=== PATIENT | female | born 1980 | race Caucasian/White ===

== ENCOUNTER 2016-11-18 18:32 | Emergency (ER) | payer MEDICAID ==
[2016-11-18] MEDS ORDERED: MORPHINE SULFATE INJ 10 MG/ML VIAL ONE (18:41)
[2016-11-18] MEDS ORDERED: MORPHINE SULFATE INJ 10 MG/ML VIAL IV ONE (18:42)
[2016-11-18 19:05] VITALS: TEMP 98.7; O2SAT 97
--- NOTE | 2016-11-18 19:09 | ED.PDOC ---
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 IS YELLING, DIFFICULT TO EXAMINE. EDC 12/21/16. 35 / BY DATES. - History of Present Illness Timing/Duration: 1 hour Severity: moderate, severe Improving Factors: nothing Worsening Factors: nothing Associated Symptoms: denies symptoms, other - DENIES ROM Allergies/Adverse Reactions: Allergies NO KNOWN ALLERGY Allergy (Verified 11/18/16 18:42) Review of Systems - Review of Systems Constitutional: Denies: chills, fever EENTM: States: no symptoms reported Respiratory: States: no symptoms reported Cardiology: States: no symptoms reported Gastrointestinal/Abdominal: States: abdominal pain Genitourinary: States: other - PRESSURE Musculoskeletal: States: no symptoms reported Skin: States: no symptoms reported Past Medical History (General) - Social History Hx Tobacco Use: Yes Hx Chewing Tobacco Use: No Hx Alcohol Use: No Hx Substance Use: Yes - FORMER - Female History Patient : Yes Family Medical History - Family History Grandparents Family History: Unknown Physical Exam - Physical Exam General Appearance: Agitated Eye Exam: bilateral normal Ears, Nose, Throat: hearing grossly normal, normal ENT inspection Neck: supple, normal inspection Respiratory: lungs clear, normal breath sounds Cardiovascular/Chest: regular rate, rhythm, no edema Gastrointestinal/Abdominal: non tender, soft, no organomegaly, other - GRAVID WITH CONTRACTIONS NL FEMALE, CX /0 Back Exam: normal inspection Extremity: normal range of motion, normal inspection Neurologic: no motor/sensory deficits, alert Skin Exam: normal color, cyanosis Progress - Progress Progress: 11/18/16 1900 90/ PER NURSING CHECK 1924 4/C+1 DISPOSITION IS VERY DIFFICULT FOR THIS PT. JOSEPH IS 20 MINUTES BUT PT IS 35WKS WITH UNKNOWN HX AND HX OF DRUG ABUSE. INFANT IS AT HIGH RISK FOR RESPIRATORY PROBLEMS IF PT'S DATES ARE OFF AND BABY IS EARLIER OR HAS SIGNIFICANT IUGR. FETUS IS MUCH BETTER SERVED AT [facility]. EMS WILL TRANSPORT TO [facility] VIA [place]. OB NURSE IS RIDING WITH THEM AND WE HAVE DONE SERIAL CERVICAL CHECKS. PT HAS PROGRESSED FAR EFFACEMENT AND STATION BUT HAS NOT DILATED ANY FURTHER. NURSE WILL CHECK PT AT [place] IF THERE IS ANY SIGNIFICANT DILITATION , WILL STOP IN [place] OR IF BABY DELIVERS PRECIPITOUSLY, THEY WILL STOP. IF NOT, THEY WILL CONTINUE TO CENTER POINT. HAVE DISCUSSED WITH DR OSHEA AT [place] AND HE IS AWARE OF THE SITUATION AND WILL NOTIFY THE OB CREW AND PLACE THEM ON STANDBY. 11/18/16 19:44 Departure - Departure Clinical Impression: Active labor Qualifiers: Fetus number: single or unspecified fetus Qualifier Code: (O60.10X0) labor with delivery, unspecified trimester, not applicable or unspecified ICD-10 Supporting Text: 35WKS 2 DAYS Time of Disposition: 19:25 - D/W DR MARINA ACCEPTS IN TRANSFER Disposition: Transfer to Hospital Condition: Good Departure Forms: ED Discharge - Pt. Copy, Patient Portal Self Enrollment Critical Care Note - Critical Care Note Comments: CRITICAL EVENT: ACTIVE LABOR CRITICAL FINDINGS: 35 12/16 BY DATES, CERIVICAL DILITATION TO 4 CRITICAL ACTIONS: SERIAL CERVICAL EXAM, ARRANGEMENT OF EMERGENT TRANSPORTATION, SYSTEMS AT RISK: UNBORN FETUS TIME 75-149 MINUTES
[2016-11-18] MEDS ORDERED: LACTATED RINGERS 1,000 ML ONE (19:15)
[2016-11-18 19:27] VITALS: BP 138/66
== END 2016-11-18 19:20 | disposition short-term general hospital (02) ==
LOC: ER 18:32
DX: O60.03 Preterm labor without delivery, third trimester (principal); Z3A.35 35 weeks gestation of pregnancy; Z87.891 Personal history of nicotine dependence
CPT/HCPCS: J2270; J7120

== ENCOUNTER 2017-05-21 01:40 | Emergency (ER) | payer MEDICAID ==
[2017-05-21] MEDS ORDERED: ZIPRASIDONE 20 MG CAP ONE (01:48)
[2017-05-21] MEDS ORDERED: LORazepam 1 MG TAB ONE (01:49)
[2017-05-21] MEDS: LORazepam 1 MG TAB PO ONE ×2 (01:53)
[2017-05-21] MEDS: ZIPRASIDONE 20 MG CAP PO ONE ×2 (01:53)
[2017-05-21 02:05] VITALS: TEMP 98.5
[2017-05-21] MEDS ORDERED: ZIPRASIDONE INJ 20 MG/ML VIAL IM ONE ×2 (02:05→02:11)
--- NOTE | 2017-05-21 05:05 | RAD ---
Clinical History : possible overdose of unknown drug , MAIN Exam : Portable AP view of the chest 05/21/2017 2:52 AM CDT Comparisons : none Findings : There is an abnormal right paratracheal density. The lungs are otherwise clear without focal consolidation or pleural effusion. The heart is normal in size. The mediastinal contours are normal in appearance. The thoracic spine is age appropriate. The shoulders are unremarkable. Limited evaluation of the upper abdomen demonstrates no gross abnormalities. Impression: 1. No acute cardiopulmonary disease. 2. Abnormal right paratracheal density, may represent lymphadenopathy. Further evaluation with chest CT may be beneficial. Electronically signed by: Conrad Rosario MD 05/21/2017 5:03 AM CDT
[2017-05-21] MEDS ORDERED: POTASSIUM CHLORIDE ELIXIR 20 MEQ/15 ML UD PO ONE (07:08)
--- NOTE | 2017-05-21 07:22 | ED.PDOC ---
History of Present Illness - General Chief Complaint: Behavioral / Psych Stated Complaint: under the influence of drugs Time Seen by Provider: 05/21/17 02:50 Source: patient, police Exam Limitations: clinical condition, intoxication - History of Present Illness Initial Comments: Patient presents with police. She was arrested and it was reported that she needed medical clearance first. She is acting physically aggressive, kicking and slamming body parts onto the gurney as well as verbally incoherent and threatening. She says that "Luis Eduardo Nichols" is her installment account checker and calls people on the nursing staff "bitch". She has several scratches and threatens to hurt staff and police as she kicks at us. Patient accepted to E.[facility]. for medical evaluation. Timing/Duration: unsure Severity: severe Improving Factors: nothing Worsening Factors: nothing Associated Symptoms: denies symptoms Allergies/Adverse Reactions: Allergies NO KNOWN ALLERGY Allergy (Verified 11/18/16 18:42) Review of Systems - Review of Systems Unable to Obtain Due To: clinical condition - Patient will not answer any questions except that she has used methamphetamines Past Medical History (General) - Patient Medical History Hx Asthma: - unk Hx Congestive Heart Failure: No Hx Hypertension: - unk Hx Diabetes: - unk Surgical History: other - Vaccination History Hx Tetanus, Diphtheria Vaccination: Yes - Social History Hx Tobacco Use: Yes Hx Chewing Tobacco Use: No Hx Alcohol Use: Yes Hx Substance Use: Yes - Female History Patient is a Female of Child Bearing Age (10 -59 yrs old): Yes Patient : No Expected Date of Delivery:: 12/21/16 Family Medical History - Family History Grandparents Family History: Unknown Physical Exam - Physical Exam General Appearance: Agitated Eye Exam: bilateral abnormal pupil - reactive but dilated Ears, Nose, Throat: hearing grossly normal Neck: non-tender, full range of motion, supple Respiratory: lungs clear Cardiovascular/Chest: regular rate, rhythm Gastrointestinal/Abdominal: normal bowel sounds, non tender, soft Neurologic: other - patient will not cooperate with neuro exam. Rest of exam done after geodon/ativan Skin Exam: other - multiple superficial scratches over her back, arms, and legs Progress - Progress Progress: 05/21/17 07:25 Patient was becoming a danger to herself, police, and my staff. Therefore, she was given geodon 20 mg IM and Ativan 2 mg IM x one. She was put in 4 point restraints for her own safety as well as the safety of the staff. About 30 minutes later she went to sleep. I listened to her heart, lungs, and bowel sounds but she could not at that point give a good neurological exam. Her drug screen was positive for methamphetamines and ethyl alcohol. Her potassium was low so she was given oral KCl. EKG showed prolonged QT but otherwise NSR with no ST changes nor T wave inversions. CXR showed no acute disease. Patient endorsed to Dr. Uriarte at 7 a.m. At that time she was still asleep. Laboratory Tests 05/21/17 05/21/17 05/21/17 03:00 03:00 03:00 WBC 4.6 L RBC 4.14 L Hgb 12.5 Hct 37.3 MCV 90.1 MCH 30.1 MCHC 33.5 RDW 15.7 H Plt Count 309 MPV 7.1 L Absolute Neuts (auto) 2.60 Absolute Lymphs (auto) 1.60 Absolute Monos (auto) 0.20 Absolute Eos (auto) 0.20 Absolute Basos (auto) 0.10 Neutrophils % 56.5 Lymphocytes % 34.5 Monocytes % 4.6 Eosinophils % 3.2 Basophils % 1.2 Sodium 142 Potassium 2.7 L Chloride 110 Carbon Dioxide 16 L Anion Gap 18.7 H BUN 12 Creatinine 0.69 BUN/Creatinine Ratio 17.4 Random Glucose 95 Serum Osmolality 282.7 Calcium 8.3 L Total Bilirubin 0.6 AST 91 H ALT 40 Alkaline Phosphatase 55 Creatine Kinase 577 H* CK-MB (CK-2) 16.3 H* CK-MB (CK-2) % 2.82 Troponin I < 0.02 Serum Total Protein 7.2 Albumin 3.8 Globulin 3.4 Albumin/Globulin Ratio 1.1 Salicylates < 4.0 Urine Opiates Screen Acetaminophen < 10.0 L Urine Barbiturates Ur Phencyclidine Scrn U Amphetamin/Meth Scrn U Benzodiazepines Scrn U Cocaine Metab Screen U Cannabinoids Screen Ethyl Alcohol 180.40 H* 05/21/17 05/21/17 03:40 03:40 WBC RBC Hgb Hct MCV MCH MCHC RDW Plt Count MPV Absolute Neuts (auto) Absolute Lymphs (auto) Absolute Monos (auto) Absolute Eos (auto) Absolute Basos (auto) Neutrophils % Lymphocytes % Monocytes % Eosinophils % Basophils % Sodium Potassium Chloride Carbon Dioxide Anion Gap BUN Creatinine BUN/Creatinine Ratio Random Glucose Serum Osmolality Calcium Total Bilirubin AST ALT Alkaline Phosphatase Creatine Kinase CK-MB (CK-2) CK-MB (CK-2) % Troponin I Serum Total Protein Albumin Globulin Albumin/Globulin Ratio Salicylates Urine Opiates Screen Cancelled Negative Acetaminophen Urine Barbiturates Cancelled Negative Ur Phencyclidine Scrn Cancelled Negative U Amphetamin/Meth Scrn Cancelled Positive H U Benzodiazepines Scrn Cancelled Negative U Cocaine Metab Screen Cancelled Negative U Cannabinoids Screen Cancelled Negative Ethyl Alcohol 05/21/17 07:33 Departure - Departure Clinical Impression: Intoxication by drug Disposition: Nursing Home Condition: Good Departure Forms: ED Discharge - Pt. Copy, Patient Portal Self Enrollment Diet: other - per longterm Activity: other - per longterm Referrals: MARCELA MARINA [Primary Care Provider] - 1-2 Weeks
[2017-05-21 10:13] VITALS: BP 114/74; O2SAT 97
== END 2017-05-21 10:07 ==
LOC: ER 01:40
DX: F19.129 Other psychoactive substance abuse with intoxication, unspecified (principal); F10.129 Alcohol abuse with intoxication, unspecified; Y90.6 Blood alcohol level of 120-199 mg/100 ml; Z87.891 Personal history of nicotine dependence
CPT/HCPCS: 36415; 71010; 80053; 80301; 80320; 80329; 82550; 82553; 84484; 85025; 93005; J3486

== ENCOUNTER 2017-11-10 13:57 | Emergency (ER) | payer SELFPAY ==
[2017-11-10 14:15] VITALS: TEMP 98.6
--- NOTE | 2017-11-10 14:26 | ED.PDOC ---
History of Present Illness - General Chief Complaint: Abdominal Pain Stated Complaint: abdominal pain Time Seen by Provider: 11/10/17 14:26 Information Source: patient Exam Limitations: no limitations - History of Present Illness Initial Comments: Joan Grimes 37 y/o female stated for the last 2 days had steady sharp pains on the abdomen which had got worse today.Had 2 episodes of nausea vomiting and unable to take anything down today feels nauseated.No hematuria ,no dysuria,no hematemesis. Abdominal Pain Onset Location: RUQ, generalized abdomen Pain Radiation: back Quality: sharpness, steady Timing/Duration: getting worse, other - 48 hours Improving Factors: nothing Worsening Factors: eating Associated Symptoms: nausea/vomiting, other - see hpi Review of Systems - Review of Systems Constitutional: States: no symptoms reported EENTM: States: no symptoms reported Respiratory: States: no symptoms reported Cardiology: States: no symptoms reported Gastrointestinal/Abdominal: States: see HPI Genitourinary: States: no symptoms reported Musculoskeletal: States: no symptoms reported Skin: States: no symptoms reported All other Systems: Reviewed and Negative, No Change from Baseline Past Medical History (General) - Patient Medical History Hx Asthma: No Hx Congestive Heart Failure: No Hx Hypertension: - unk Hx Diabetes: No Surgical History: no surgical history - Vaccination History Hx Tetanus, Diphtheria Vaccination: Yes - Social History Hx Tobacco Use: Yes Hx Chewing Tobacco Use: No Hx Alcohol Use: Yes Hx Substance Use: Yes Hx Physical Abuse: No Hx Emotional Abuse: No Hx Suspected Abuse: No - Female History Patient is a Female of Child Bearing Age (10 -59 yrs old): Yes Hx Last Menstrual Period: 10/10/17 Patient : No Family Medical History - Family History Grandparents Family History: Unknown Hx Family Hypertension: Yes - multiple family members Hx Family Diabetes: Yes - multiple family members Hx Family;Other: cholelithiasis with nonspecific gall bladder thickening;non dilated cystic duct;hepatomegaly Physical Exam - Physical Exam General Appearance: Alert, Anxious, No apparent distress Eyes, Ears, Nose, Throat Exam: TMs normal, pharynx normal Neck: non-tender, supple Respiratory: chest non-tender, lungs clear, no respiratory distress Cardiovascular/Chest: regular rate, rhythm, no murmur Gastrointestinal/Abdominal: normal bowel sounds, soft, no organomegaly, tenderness - right side abdomen no peritoneal signs Extremity: normal range of motion, no calf tenderness Progress - Progress Progress: 11/10/17 16:36 Last Vital Signs Temp 98.6 F 11/10/17 14:07 Pulse 92 H 11/10/17 14:07 Resp 20 11/10/17 14:07 BP 144/81 11/10/17 14:07 Pulse Ox 100 11/10/17 14:07 - Results/Orders Results/Orders: Laboratory Last Values WBC 9.2 K/mm3 (4.8-10.8) 11/10/17 14:50 RBC 4.63 M/mm3 (4.20-5.40) 11/10/17 14:50 Hgb 13.8 gm/dL (12.0-16.0) 11/10/17 14:50 Hct 41.2 % (36.0-47.0) 11/10/17 14:50 MCV 89.0 fl (81.0-99.0) 11/10/17 14:50 MCH 29.9 pg (27.0-31.0) 11/10/17 14:50 MCHC 33.6 g/dL (33.0-37.0) 11/10/17 14:50 RDW 14.0 % (11.5-14.5) 11/10/17 14:50 Plt Count 318 K/mm3 (130-400) 11/10/17 14:50 MPV 7.6 fl (7.40-10.4) 11/10/17 14:50 Absolute Neuts (auto) 7.10 K/uL (1.8-6.8) H 11/10/17 14:50 Absolute Lymphs (auto) 1.50 K/uL (1.0-3.4) 11/10/17 14:50 Absolute Monos (auto) 0.40 K/uL (0.2-0.8) 11/10/17 14:50 Absolute Eos (auto) 0.20 K/uL (0.0-0.4) 11/10/17 14:50 Absolute Basos (auto) 0.10 K/uL (0.0-0.1) 11/10/17 14:50 Neutrophils % 77.3 % (42.0-78.0) 11/10/17 14:50 Lymphocytes % 16.5 % (20.0-50.0) L 11/10/17 14:50 Monocytes % 3.9 % (2.0-9.0) 11/10/17 14:50 Eosinophils % 1.7 % (1.0-5.0) 11/10/17 14:50 Basophils % 0.6 % (0.0-2.0) 11/10/17 14:50 Sodium 139 mmol/L (135-145) 11/10/17 14:27 Potassium 4.0 mmol/L (3.6-5.0) 11/10/17 14:27 Chloride 103 mmol/L (101-111) 11/10/17 14:27 Carbon Dioxide 26 mmol/L (21-31) 11/10/17 14:27 Anion Gap 14.0 (12-18) 11/10/17 14:27 BUN 9 mg/dL (7-18) 11/10/17 14:27 Creatinine 0.62 mg/dL (0.6-1.3) 11/10/17 14:27 BUN/Creatinine Ratio 14.5 (10-20) 11/10/17 14:27 Random Glucose 102 mg/dL (70-105) 11/10/17 14:27 Serum Osmolality 276.4 mOsm/L (275-295) 11/10/17 14:27 Calcium 8.9 mg/dL (8.4-10.2) 11/10/17 14:27 Total Bilirubin 0.7 mg/dL (0.2-1.0) 11/10/17 14:27 AST 55 IU/L (10-42) H 11/10/17 14:27 ALT 28 IU/L (10-60) 11/10/17 14:27 Alkaline Phosphatase 81 IU/L (42-121) 11/10/17 14:27 Serum Total Protein 8.4 gm/dL (6.4-8.2) H 11/10/17 14:27 Albumin 4.2 g/dl (3.2-5.5) 11/10/17 14:27 Globulin 4.2 gm/dL (2.3-3.5) H 11/10/17 14:27 Albumin/Globulin Ratio 1.0 (1.1-1.9) L 11/10/17 14:27 Lipase 26 U/L (22-51) 11/10/17 14:28 Serum HCG, Qual Negative 11/10/17 15:00 Urine Color Yellow (Yellow) 11/10/17 15:00 Urine Appearance Clear (Clear) 11/10/17 15:00 Urine pH 6.5 (4.5-7.8) 11/10/17 15:00 Ur Specific Nordman >= 1.030 (1.005-1.030) 11/10/17 15:00 Urine Protein Negative mg/dL 11/10/17 15:00 Urine Glucose (UA) Negative mg/dL (Negative) 11/10/17 15:00 Urine Ketones Negative mg/dL (NEGATIVE) 11/10/17 15:00 Urine Blood Trace-intact (Negative) H 11/10/17 15:00 Urine Nitrite Negative 11/10/17 15:00 Urine Bilirubin Negative (NEGATIVE) 11/10/17 15:00 Urine Urobilinogen 0.2 mg/dL (0.2-1.0) 11/10/17 15:00 Ur Leukocyte Esterase Negative (Negative) 11/10/17 15:00 Urine RBC 0-1 /hpf 11/10/17 15:00 Urine WBC 0-1 /hpf 11/10/17 15:00 Ur Epithelial Cells 3-5 /hpf 11/10/17 15:00 Amorphous Sediment 1+ 11/10/17 15:00 Urine Bacteria Rare 11/10/17 15:00 Urine Opiates Screen Negative ng/mL (2000) 11/10/17 14:27 Urine Barbiturates Negative ng/mL (200) 11/10/17 14:27 Ur Phencyclidine Scrn Negative ng/mL (25) 11/10/17 14:27 U Amphetamin/Meth Scrn Negative ng/mL (1000) 11/10/17 14:27 U Benzodiazepines Scrn Negative ng/mL (200) 11/10/17 14:27 U Cocaine Metab Screen Negative ng/mL (300) 11/10/17 14:27 U Cannabinoids Screen Negative ng/mL (50) 11/10/17 14:27 - EKG/XRAY/CT XRAY: gb -sono:cholelithiasis CT Ordered: Yes - abd/pelvis-cholelithiasis;nephrolithiasis Departure - Departure Clinical Impression: Left nephrolithiasis Abdominal pain Qualifiers: Abdominal location: generalized Qualified Code(s): R10.84 - Generalized abdominal pain Cholelithiasis Qualifiers: Cholelithiasis location: gallbladder Cholecystitis presence: without cholecystitis Biliary obstruction: without biliary obstruction Qualified Code(s) : K80.20 - Calculus of gallbladder without cholecystitis without obstruction Time of Disposition: 19:23 Disposition: Discharge to Home or Self Care Departure Forms: ED Discharge - Pt. Copy, Patient Portal Self Enrollment Instructions: DI for Gallstones, Gallstones Diet: other - gall bladder diet as per instruction Referrals: MARCELA MARINA [Primary Care Provider] - 1-2 Weeks Additional Instructions: FOLLOW UP WITH DR. MURPHY SURGEON AT 9:00 am 11/11/2017 tomorrow at his office
[2017-11-10] MEDS ORDERED: PROMETHAZINE HCL INJ 25 MG/ML VIAL IM ONE ×2 (14:27→19:19)
[2017-11-10] MEDS ORDERED: SODIUM CHLORIDE 0.9% 1000ML 1,000 ML IVS ONE (14:27)
[2017-11-10] MEDS ORDERED: ALUM & MAG HYDROX-SIMETHICONE 30 ML UD PO ONE (15:04)
[2017-11-10] MEDS ORDERED: LIDOCAINE HCL 2% (MOUTH-THROAT) 15 ML UD PO ONE (15:04)
[2017-11-10] MEDS ORDERED: SUCRALFATE 1 GM/10 ML 1 GM UD PO ONE (15:14)
[2017-11-10] MEDS ORDERED: ALUM & MAG HYDROX-SIMETHICONE 30 ML, LIDOCAINE VISCOUS 2% 15 ML PO ONE ×2 (15:14)
[2017-11-10] MEDS ORDERED: PANTOPRAZOLE SODIUM IV 40 MG VIAL IV ONE (15:14)
[2017-11-10] MEDS ORDERED: MORPHINE SULFATE INJ 10 MG/ML VIAL IV ONE ×3 (16:26→19:19)
[2017-11-10] MEDS ORDERED: HYDROCOD/APAP 10/325 (ER DISP) # 3 tablets PO ONE (19:26)
[2017-11-10 19:47] VITALS: BP 129/83; O2SAT 96
--- NOTE | 2017-11-10 21:21 | CT ---
PROCEDURE: Abdomen/Pelvis w/Contrast HISTORY: RIGHT SIDED ABD PAIN Indication: Same as above Comparison: None . Technique: CT of the abdomen and pelvis was done with intravenous contrast. Images were obtained from the lung base to the level of the pubic symphysis in axial plane, followed by orthogonal sagittal and coronal reconstruction. Oral contrast was not given for the study. The patient was injected with contrast intravenously, without any documented immediate adverse reactions. This exam was performed according to our departmental dose-optimization program, which includes automated exposure control, adjustment of the mA and/or KV according to the patient's size and/or use of iterative reconstruction technique. FINDINGS: Images through the lung bases do not show any focal infiltrates or pleural effusions. The liver, pancreas, spleen and the bilateral adrenal glands appear unremarkable. There is cholelithiasis with gallbladder wall edema, suspicious for superimposed acute cholecystitis. There is presence of a diffuse subcentimeter nonobstructive left renal calculi. Cortical thickening and parenchymal scarring is seen in the right kidney, most likely as a result of prior episodes of obstruction/inflammation of the right kidney. There is no hydroureteronephrosis on either side The urinary bladder is unremarkable . Benign enhancing dominant left ovarian follicle is seen, not requiring any imaging follow-up. Trace amount of free fluid is seen in the dependent portion of the pelvis, physiologic in amount The small bowel appears unremarkable, without any evidence of small bowel obstruction or bowel wall thickening. There is no CT evidence of acute appendicitis, pericecal inflammatory change or ileocecal mesenteric adenitis. The ileocecal junction appears unremarkable. There is no CT evidence of acute colonic diverticulitis or colitis or large bowel obstruction. The splenic and portal veins are of normal caliber, without any filling defects. There is no pathological lymphadenopathy in the retroperitoneum or in the pelvic region. There is no evidence of free air in the abdomen or the pelvic region. There is no clinically significant abdominal aortic aneurysm. There is no clinically significant inguinal or ventral hernia. The visualized lumbar spine is unremarkable . The paravertebral soft tissues are unremarkable. The remainder of the pelvic structures are unremarkable. IMPRESSION: There is cholelithiasis with gallbladder wall edema, suspicious for superimposed acute cholecystitis. There is presence of a diffuse subcentimeter nonobstructive left renal calculi. Cortical thickening and parenchymal scarring is seen in the right kidney, most likely as a result of prior episodes of obstruction/inflammation of the right kidney. There is no hydroureteronephrosis on either side . Location of Interpretation: Teleradiology Electronically signed by: Gideon Almendarez MD 11/10/2017 6:43 PM [facility] Workstation: [id number]
--- NOTE | 2017-11-10 21:29 | US ---
NAME: PARUL HOUSER PROCEDURE: US GALLBLADDER ORDER DATE: 11/10/2017 3:16 PM METHODS STUDY ANALYST ACCESSION NUMBER: [id number] Clinical History: abdominal pain Indication: Same as above Comparison: None . Technique: Tidwell scale evaluation of the right upper quadrant of the abdomen was done ultrasonographically along with limited color Doppler evaluation Findings: There is presence of multiple intraluminal gallstones, the largest measuring 11 mm. The gallbladder wall is thickened measuring 3.4 mm. There is ultrasonographically positive Azar's sign suspicious for superimposed acute cholecystitis The common duct is normal in transverse diameter and measures 4.1 mm. There is no intraductal common duct calculus. The liver measures 21.2 centimeters in length. There are no focal liver lesions. There is no intrahepatic biliary dilatation. The pancreas , the visualized portions are unremarkable . The right kidney was not evaluated on the current study Impression: There is presence of multiple intraluminal gallstones, the largest measuring 11 mm. The gallbladder wall is thickened measuring 3.4 mm. There is ultrasonographically positive Azar's sign suspicious for superimposed acute cholecystitis Location of Interpretation: Teleradiology Electronically signed by: Gideon Almendarez MD 11/10/2017 9:28 PM [facility] Workstation: [id number]
== END 2017-11-10 19:48 | disposition home or self-care (01) ==
LOC: ER 13:57
DX: K80.20 Calculus of gallbladder without cholecystitis without obstruction (principal); N20.0 Calculus of kidney; Z87.891 Personal history of nicotine dependence
CPT/HCPCS: 74177; 76705; 80053; 80307; 81001; 83690; 84703; 85025; J2270; J2550; J7030

== ENCOUNTER 2017-11-14 14:47 | Emergency (ER) | payer SELFPAY ==
--- NOTE | 2017-11-14 15:39 | RAD ---
Procedure: XR ABDOMEN 2 VIEWS SUPINE ERECT Exam Date: 11/14/2017 3:16 PM PROCESS WORKER Ordering Provider: Dk Villavicencio Clinical Indication: Abdominal pain Comparison: November 10, 2017 Findings: Lungs are clear. Heart size is within normal limits. Air-filled and distended appearance of small bowel loops in the left hemiabdomen. No significant gas-filled loops of bowel are seen in the right hemiabdomen.. No pneumoperitoneum. Moderate volume stool burden. Impression: No acute pulmonary process. Mildly air-filled and distended appearance of the small bowel in the left hemiabdomen. This may be related to mild ileus. Electronically signed by: Katherin Roger MD 11/14/2017 3:38 PM PROCESS WORKER
[2017-11-14] MEDS ORDERED: KETOROLAC TROMETHAMINE INJ 30 MG/ML VIAL ONE (16:04)
[2017-11-14] MEDS ORDERED: PROMETHAZINE HCL INJ 25 MG/ML VIAL ONE (16:04)
[2017-11-14] MEDS ORDERED: SODIUM CHLORIDE 0.9% 1000ML 1,000 ML ONE (16:04)
[2017-11-14] MEDS ORDERED: SODIUM CHLORIDE 0.9% 50ML 50 ML ONE (16:05)
[2017-11-14] MEDS: KETOROLAC TROMETHAMINE INJ 30 MG/ML VIAL IV ONE (16:11)
[2017-11-14] MEDS: SODIUM CHLORIDE 0.9% 1000ML 1,000 ML IVS PRN (16:18)
[2017-11-14] MEDS: PROMETHAZINE HCL INJ 12.5 MG in SODIUM CHLORIDE 0.9% 50ML 50 ML IVPB ONE (16:23)
[2017-11-14 17:18] VITALS: TEMP 97.9
--- NOTE | 2017-11-14 20:59 | ED.PDOC ---
History of Present Illness - General Chief Complaint: Abdominal Pain Stated Complaint: abdominal pain Time Seen by Provider: 11/14/17 16:06 - History of Present Illness Allergies/Adverse Reactions: Allergies NO KNOWN ALLERGY Allergy (Verified 11/10/17 14:15) Home Medications: Ambulatory Orders Amoxicillin & Pot Clavulanate [Augmentin] 1 tab PO BID #20 tab 11/14/17 Dicyclomine HCl [Bentyl] 20 mg PO Q6HR PRN #20 tab 11/14/17 Ketorolac Tromethamine [Toradol Tabs] 10 mg PO Q8HR PRN #15 tab 11/14/17 Tramadol HCl [Ultram] 50 mg PO Q6HR PRN #15 tab 11/14/17 Past Medical History (General) - Patient Medical History Hx Asthma: No Hx Congestive Heart Failure: No Hx Hypertension: - unk Hx Diabetes: No Surgical History: no surgical history - Vaccination History Hx Tetanus, Diphtheria Vaccination: Yes - Social History Hx Tobacco Use: Yes Hx Chewing Tobacco Use: No Hx Alcohol Use: Yes Hx Substance Use: Yes Hx Physical Abuse: No Hx Emotional Abuse: No Hx Suspected Abuse: No - Female History Hx Last Menstrual Period: 10/10/17 Patient : No Expected Date of Delivery:: 12/21/16 Family Medical History - Family History Grandparents Family History: Unknown Hx Family Hypertension: Yes - multiple family members Hx Family Diabetes: Yes - multiple family members Hx Family;Other: cholelithiasis with nonspecific gall bladder thickening;non dilated cystic duct;hepatomegaly Progress - Progress Progress: 11/14/17 21:00 PT CURRENTLY PAIN FREE, ABDOMEN SOFT NON SURGICAL, CAN F/U WITH SURGEON ON THURSDAY, WARNINGS AND PRECAUTIONS GIVEN, PT UNDERSTANDS WHEN TO RETURN Departure - Departure Clinical Impression: Cholelithiasis Qualifiers: Cholelithiasis location: gallbladder Cholecystitis presence: with cholecystitis Cholecystitis acuity: acute Biliary obstruction: without biliary obstruction Qualified Code(s): K80.00 - Calculus of gallbladder with acute cholecystitis without obstruction Time of Disposition: 20:56 Disposition: Discharge to Home or Self Care Condition: Good Departure Forms: ED Discharge - Pt. Copy, Patient Portal Self Enrollment Diet: low fat, low cholesterol Referrals: MARCELA MARINA [Primary Care Provider] - 1-2 Weeks Camron Pathak MD [Active Staff] - 11/16/17 Prescriptions: Dicyclomine HCl [Bentyl] 20 mg PO Q6HR PRN #20 tab PRN Reason: Abdominal Cramping Tramadol HCl [Ultram] 50 mg PO Q6HR PRN #15 tab PRN Reason: Pain Ketorolac Tromethamine [Toradol Tabs] 10 mg PO Q8HR PRN #15 tab PRN Reason: Pain Amoxicillin & Pot Clavulanate [Augmentin] 1 tab PO BID #20 tab Home Medications: Ambulatory Orders Amoxicillin & Pot Clavulanate [Augmentin] 1 tab PO BID #20 tab 11/14/17 Dicyclomine HCl [Bentyl] 20 mg PO Q6HR PRN #20 tab 11/14/17 Ketorolac Tromethamine [Toradol Tabs] 10 mg PO Q8HR PRN #15 tab 11/14/17 Tramadol HCl [Ultram] 50 mg PO Q6HR PRN #15 tab 11/14/17
[2017-11-14 21:21] VITALS: BP 119/77; O2SAT 98
== END 2017-11-14 21:27 | disposition home or self-care (01) ==
LOC: ER 14:47
DX: K80.00 Calculus of gallbladder with acute cholecystitis without obstruction (principal)
CPT/HCPCS: 36415; 74020; 80053; 82150; 83690; 85025; A4216; J1885; J2550; J7030

== ENCOUNTER 2018-02-13 15:07 | Emergency (ER) | payer OTHER ==
[2018-02-13] MEDS ORDERED: CHLORHEXIDINE GLUCONATE 4 % 15 ML UD TOP ONE (15:13)
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
[2018-02-13] MEDS ORDERED: IBUPROFEN 200 MG TAB PO ONE (15:36)
[2018-02-13] MEDS ORDERED: SULFA/TRIMETH 800/160 (DS) TAB 1 EA TAB PO ONE (15:36)
[2018-02-13] MEDS ORDERED: NEOMYCIN-BACITRACIN-POLYMYXIN 0.9 GM UD TOP ONE (15:36)
[2018-02-13 16:58] VITALS: BP 120/35; O2SAT 98
== END 2018-02-13 17:11 ==
LOC: ER 15:07
DX: S01.01XA Laceration without foreign body of scalp, initial encounter (principal); Z87.891 Personal history of nicotine dependence; Y08.89XA Assault by other specified means, initial encounter; Y92.9 Unspecified place or not applicable

== ENCOUNTER → 2018-07-29 | Outpatient (CLI) | payer OTHER | LOC: LAB.O 09:40 | PROVIDERS: ATTEND Obstetrics & Gynecology | DX: Z34.81 Encounter for supervision of other normal pregnancy, first trimester (principal); Z3A.10 10 weeks gestation of pregnancy ==

== ENCOUNTER → 2018-08-04 | Outpatient (CLI) | payer OTHER ==
--- NOTE | 2018-08-05 11:27 | US ---
EXAM DESCRIPTION: Pelvis Transvaginal CLINICAL HISTORY: NO FHT'S COMPARISON: None. TECHNIQUE: Real-time sonographic images of the pelvis are obtained transvaginally. FINDINGS: The uterus measures 11.2 x 3.5 x 6.0 cm. The uterus is normal positioning. There is a single intrauterine gestational sac with irregular borders surrounded by heterogeneous echogenic mildly thickened endometrium. There is a heterogeneous hypoechoic fluid collection posterior to the gestational sac measuring 2.1 x 3.1 x 1.9 cm. pole is seen with crown-rump length of 1.8 cm consistent with estimated gestational age by ultrasound of 8 weeks 0 days. No heart rate is identified on color duplex Doppler or M mode evaluation. Small yolk sac is identified. Gestational age by LMP is 11 weeks 3 days. The right ovary measures 4.0 x 1.4 x 3.0cm. The left ovary measures 3.6 x 2.5 x 1.7cm. Both ovaries show normal vascular flow. No abnormal adnexal mass or fluid collection is seen. IMPRESSION: Intrauterine irregular gestational sac containing embryo without heart rate suggesting nonviable gestation. Estimated gestational age by ultrasound is 8 weeks 0 days. heart rate should be identified. There is approximately 3 weeks discrepancy between gestational age by ultrasound and LMP as well. Recommend correlation with serum beta-hCG. Small subchorionic hemorrhage is identified. Electronically signed by: Michael Zamora MD 08/05/2018 11:25 AM CDT
== END ==
LOC: US 16:01
PROVIDERS: ATTEND Obstetrics & Gynecology
DX: O36.8390 Maternal care for abnormalities of the fetal heart rate or rhythm, unspecified trimester, not applicable or unspecified (principal); Z3A.12 12 weeks gestation of pregnancy

== ENCOUNTER 2018-08-06 05:00 | Emergency (ER) | payer OTHER ==
--- NOTE | 2018-08-06 05:18 | ED.PDOC ---
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 Timing/Duration: just prior to arrival Quality: cramping Onset Location: vaginal Radiation: none Activites at Onset: none Prior abdominal problems: similar symptoms Sexual intercourse history: single partner Improving Factors: nothing Worsening Factors: nothing Associated Symptoms: other - see hpi Allergies/Adverse Reactions: Allergies NO KNOWN ALLERGY Allergy (Verified 11/10/17 14:15) Home Medications: Ambulatory Orders NK [NK] 02/13/18 Review of Systems - Review of Systems Constitutional: States: no symptoms reported EENTM: States: no symptoms reported Respiratory: States: no symptoms reported Cardiology: States: no symptoms reported Gastrointestinal/Abdominal: States: no symptoms reported Genitourinary: States: see HPI Musculoskeletal: States: no symptoms reported Skin: States: no symptoms reported Neurological: States: no symptoms reported Past Medical History (General) - Patient Medical History Hx Asthma: No Hx Congestive Heart Failure: No Hx Hypertension: - unk Hx Diabetes: No - Vaccination History Hx Tetanus, Diphtheria Vaccination: Yes - Social History Hx Tobacco Use: Yes Hx Chewing Tobacco Use: No Hx Alcohol Use: Yes Hx Substance Use: Yes Hx Physical Abuse: No Hx Emotional Abuse: No Hx Suspected Abuse: No - Female History Patient is a Female of Child Bearing Age (10 -59 yrs old): Yes Hx Last Menstrual Period: 04/18/18 - Ab1 Patient : Yes Expected Date of Delivery:: 01/22/19 Hx Gestational Age: 11 Family Medical History - Family History Grandparents Hx Family Hypertension: Yes - multiple family members Hx Family Diabetes: Yes - multiple family members Hx Family;Other: cholelithiasis with nonspecific gall bladder thickening;non dilated cystic duct;hepatomegaly Physical Exam - Physical Exam General Appearance: Alert, Anxious, No apparent distress Eyes, Ears, Nose, Throat Exam: normal ENT inspection Neck: non-tender, full range of motion, supple Cardiovascular/Respiratory: regular rate, rhythm, no M/R/G, normal peripheral pulses Gastrointestinal/Abdominal: normal bowel sounds, soft, tenderness - lower abdomen Pelvic Exam: no cerv. motion tender, no masses, blood - clots suctined, other - cervix open Extremity: no pedal edema, no calf tenderness Neurologic: alert, oriented x 3 Skin Exam: normal color, warm/dry Progress - Progress Progress: 08/06/18 06:07 Vital Signs - 8 hr 08/06/18 08/06/18 05:09 06:03 Temperature 99.2 F 99 F Pulse Rate [ 92 H 82 left] Respiratory 18 18 Rate Blood Pressure 108/67 104/72 [left] O2 Sat by Pulse 98 95 Oximetry - Results/Orders Results/Orders: Patient labs rpr-negative,O positive;Rh antibody screen-negative 08/06/18 05:19 IV Care:Saline Lock per Protoc QSHIFT Laboratory Results - last 24 hr 08/06/18 08/06/18 08/06/18 05:30 05:30 05:30 WBC 10.4 RBC 3.96 L Hgb 12.2 Hct 36.3 MCV 91.6 MCH 30.8 MCHC 33.7 RDW 15.1 H Plt Count 303 MPV 7.3 L Absolute Neuts (auto) 7.90 H Absolute Lymphs (auto) 1.60 Absolute Monos (auto) 0.50 Absolute Eos (auto) 0.20 Absolute Basos (auto) 0.10 Neutrophils % 76.3 Lymphocytes % 15.6 L Monocytes % 5.0 Eosinophils % 2.2 Basophils % 0.9 Sodium 138 Potassium 3.4 L Chloride 106 Carbon Dioxide 24 Anion Gap 11.4 L BUN 10 Creatinine 0.72 BUN/Creatinine Ratio 13.9 Random Glucose 102 Serum Osmolality 274.9 L Calcium 9.1 Total Bilirubin 0.5 AST 59 H ALT 38 Alkaline Phosphatase 70 Serum Total Protein 7.5 Albumin 3.9 Globulin 3.6 H Albumin/Globulin Ratio 1.1 Beta HCG, Quant 4468.0 H Patient ABO/Rh Cancelled Departure - Departure Clinical Impression: Spontaneous , Vaginal bleeding affecting early Time of Disposition: 06:26 Disposition: Fpc Condition: Fair Departure Forms: ED Discharge - Pt. Copy, Patient Portal Self Enrollment Instructions: Dealing With Miscarriage, DI for Miscarriage Referrals: MARCELA MARINA [Referring] - 1-2 Weeks Home Medications: Ambulatory Orders NK [NK] 02/13/18 Additional Instructions: May take Aleve (over the counter )1-2 tablets am/pm for pain;Return to ER as needed;follow up with OB 09 August 2018
[2018-08-06] MEDS ORDERED: LACTATED RINGERS 1,000 ML IVS ONE (05:19)
[2018-08-06] MEDS ORDERED: KETOROLAC TROMETHAMINE INJ 30 MG/ML VIAL IV ONE (05:46)
[2018-08-06] MEDS ORDERED: fentaNYL CITRATE INJ 50 MCG/ML AMP IV ONE (05:46)
[2018-08-06 06:04] VITALS: O2SAT 95
[2018-08-06] MEDS ORDERED: HYDROCOD/APAP 5/325 (ER DISP) #3 TAB PO ONE (06:48)
[2018-08-06] MEDS ORDERED: HYDROcodone 5MG/APAP 325MG 1 EA TAB PO ONE (06:51)
[2018-08-06] MEDS ORDERED: HYDROcodone 5MG/APAP 325MG 1 EA TAB ONE (06:52)
[2018-08-06 06:58] VITALS: BP 105/65; TEMP 97.8
== END 2018-08-06 06:59 ==
LOC: ER 05:00
DX: O03.9 Complete or unspecified spontaneous abortion without complication (principal); F19.11 Other psychoactive substance abuse, in remission; Z87.891 Personal history of nicotine dependence
CPT/HCPCS: 36415; 80053; 84702; 85025; J1885; J3010; J7120